=== PATIENT | male | born 1980 | race Caucasian/White ===

== ENCOUNTER 2025-07-15 17:06 | Emergency (ER) | payer OTHER, SELFPAY ==
[2025-07-15 17:16] VITALS: BP 149/99
[2025-07-15 17:50] LABS: Hematocrit 44.3 % (39.0-52.0); Hemoglobin 14.7 g/dL (13.0-18.0); Mean Corp Hgb Conc. 33.2 g/dL (33.0-37.0); Mean Corpuscular Volume 83.6 fL (80.0-94.0); Nucleated Red Blood Cells % 0 % (-); Platelet Count 348 10^3/uL (130-400); Red Cell Dist. Width 12.2 % (11.5-14.5)
[2025-07-15 18:04] LABS: ALT (SGPT) 32 U/L (0-50); AST (SGOT) 31 U/L (17-59); Albumin 4.8 g/dl (3.5-5.0); Alkaline Phosphatase 40 U/L (38-126); Blood Urea Nitrogen 14 mg/dl (9-20); Calcium 9.5 mg/dl (8.4-10.2); Carbon Dioxide 23 mmol/L (22-30); Chloride 106 mmol/L (98-107); Glucose 95 mg/dl (70-99); Potassium 4.2 mmol/L (3.5-5.1); Sodium 138 mmol/L (135-145); Total Protein 8.1 g/dl (6.3-8.2); eGFR > 60.00
[2025-07-15 22:10] VITALS: BP 132/78
[2025-07-15 22:54] LABS: C-Reactive Protein 6.10 mg/L (0.0-10.00)
--- NOTE | 2025-07-15 23:15 | ED.GENMED ---
History of Present Illness
General
Chief Complaint: Musculo-Skeletal Complaint
Source: patient
Exam Limitations: none
Time Seen by Provider: 07/15/25 21:06
Nursing documentation reviewed up to this point in time: agreed with
History of Present Illness
History of Present Illness:
45-year-old male with history as noted presents for evaluation of left elbow pain and swelling. Patient reports that he has had intermittent swelling posterior left elbow for around 2 years�he says that when it flares up he typically can apply
compressing sleeve and will improve rather quickly. He says that he was told he had bursitis in the past and did require aspiration last year. He says that today around 10 AM he started to notice some increasing pain and swelling that has
progressed throughout the day. Worse with any movement. No relieving factors. He says swelling and pain is worse than usual which prompted ER visit. No fever or any other acute issues. He does note that he was recently ill with URI. He denies
any trauma.
Past History
Past History
ED Past Medical History: GERD, HTN, Psychiatric (Anxiety, Depression) and Other (Diverticulitis, )
ED Past Surgical History: None
Social History
Tobacco: Former smoker
Alcohol: Occasional
Drug: None
Personal:
Living: with family
Employment: Employed
Family History
Family History: Negative Early CAD
Review of Systems
Review of Systems
All Other Systems: ROS reviewed and negative except as documented in HPI and ROS
Constitutional: Denies fever
Respiratory: Denies trouble breathing
Cardiac: Denies chest pain
: Denies flank pain
Musculoskeletal: Reports other (Pain and swelling left elbow); Denies neck pain or back pain
Phy Exam
Physical Exam
Physical Exam:
General: Awake, alert, oriented x3; no acute distress
Head: Normocephalic, atraumatic
Eyes: Conjunctiva normal
Throat: Airway intact, handling secretions
Neck: Trachea midline
Lungs: Breathing comfortably no distress
Heart: Tachycardia with regular rhythm
Neuro: Grossly intact
Extremities: Patient has swelling and tenderness over the olecranon bursa, no appreciable joint effusion in the left elbow; he is able to move left elbow through full active range of motion with only mild pain at extremes of flexion; there is no
erythema in the area of concern and no warmth or induration, no wounds noted, no bruising or signs of trauma, strong radial pulse on the left
Scores
Heart Failure Risk
Heart Failure Risk Score: Not Applicable
Heart Score for Chest Pain Patients
STEMI patient?: Not applicable
Withdrawal Assessment of Alcohol
Withdrawal Assessment Completed?: Not applicable
Course
Orders/Labs/Results
Orders:
Orders
07/15/25 17:31
C-Reactive Protein Urgent
Comment: ADD ON
Complete Blood Count/With Diff Urgent
Comprehensive Metabolic Panel Urgent
Erythrocyte Sed Rate Urgent
Comment: ADD ON
Blood Culture Urgent
MARIEL Source: Blood/Venous
Specimen Description:
07/15/25 22:10
Add On- LAB Urgent
Tests Added?: ESR, CRP
CR Elbow - Left Min 3 Views Urgent
Comment:
Reason For Exam: pain and swelling
07/15/25 23:09
Body Fluid Cell Count Urgent
What is the Body Fluid: joint
Date Specimen was Collected: 07/15/25
Time Specimen was Collected: 23:07
Comment: with DIFF
Body Fluid Crystals Urgent
What is the Body Fluid: joint
Date Specimen was Collected: 07/15/25
Time Specimen was Collected: 23:07
Body Fluid Glucose Urgent
Fluid Source: Other
Date Specimen was Collected: 07/15/25
Time Specimen was Collected: 23:07
Fluid Culture with Gram Stain Urgent
MARIEL Source: Joint Fluid
Specimen Description:
Date Specimen was Collected: 07/15/25
Time Specimen was Collected: 23:07
Gram Stain Stat
MARIEL Source: Joint
Specimen Description:
Date Specimen was Collected: 07/15/25
Time Specimen was Collected: 23:07
Abnormal Lab Results
07/15/25
17:31
WBC 12.5 H 10^3/uL
(4.8-10.8)
Absolute Neuts (auto) 8.6 H 10^3/uL
(1.4-6.5)
Absolute Monos (auto) 1.0 H 10^3/uL
(0.1-0.6)
Lymphocytes % 19.8 L %
(20.5-51.1)
07/15/25 17:31
07/15/25 17:31
Vital Signs
Initial and Last Documented VS:
Initial Vital Signs
Temp Pulse Resp BP Pulse Ox
37.7 C 108 20 149/99 96
07/15/25 17:16 07/15/25 17:16 07/15/25 17:16 07/15/25 17:16 07/15/25 17:16
Last Documented Vital Signs
Temp Pulse Resp BP Pulse Ox
37.4 C 108 20 132/78 95
07/15/25 22:10 07/15/25 17:16 07/15/25 17:16 07/15/25 22:10 07/15/25 23:16
Procedures
Incision/Drainage/Joint Aspiration
Left Elbow:
Anethesia: 1% Lidocaine with Epi
Preparation: cleaned with Betadine
Type of procedure: aspiration
Nature of site: other (bursa)
How much fluid was obtained?: number in mls (15cc)
Fluid description: cloudy and blood tinged
Treatment: bandaid applied
Additional information:
left olecranon bursa aspirated under sterile technique
MDM/Problems Addressed
Differential Diagnosis Includes:
Septic bursitis, traumatic/mechanical bursitis, gout
MDM/Problems Addressed:
45-year-old male presents with swelling and pain in the left elbow as described above. Vitals and exam as above. Notably no fever although he does have some mild tachycardia that improved by my assessment. Labs were sent in triage including a
CBC which shows a marginal leukocytosis but no left shift. Chemistry unremarkable. Will check x-ray of the elbow. Plan likely for aspiration of bursa. Overall concern for septic bursitis.
X-ray of the elbow shows no joint effusion or other acute abnormalities. Decision made to proceed with aspiration of olecranon bursa as documented in procedure note. Will follow-up on fluid studies.
WBC 3500 on fluid analysis at least mildly concerning for septic bursitis especially in the setting of leukocytosis. No significant erythema or overlying skin changes in the area. No fever noted, nontoxic appearing. I think he can reasonably be
treated with oral antibiotics to start. Patient comfortable with this plan. Spoke about follow-up plan with orthopedist and strict return precautions. All questions answered.
*Radiology
Radiology exam reviewed: radiology read reviewed
*Pulse Oximetry
SaO2: 95
Oxygen Mode of Delivery: Room air
Patient hypoxic: no (95%)
*Critical Care Note
Total Time (30-74mins, 75-104mins- exclusive of procedures): Not Applicable
Data Reviewed
Source: patient
Patient Management
Escalation/DeEscalation of care consider admission/obs:
Considered need for admission
ED Attending Note
-
Portions of this chart may have been created with voice recognition software.� Occasional wrong word or��sound alike� substitutions may have occurred due to the inherent limitations of voice recognition software.
Discharge Plan
Departure
Patient Disposition: Home (Routine Discharge)
Date of Disposition: 07/16/25
Time of Disposition: 00:07
Patient with high blood pressure during this ER visit?: Yes
Discharge Problem:
Septic bursitis
Instructions: Bursitis - ED (DC)
Prescriptions:
New
clindamycin HCl [Cleocin HCl] 150 mg capsule
450 mg PO TID 10 Days Qty: 90 0RF
No Action
famotidine 40 MG tablet
40 mg PO BID
lisinopril 10 MG tablet
10 mg PO DAILY
Referrals:
[facility] [Other]
Phu Watson MD [Active, Orthopedics] - Call in 1-3 days for appt
Activity Restrictions/Additional Instructions:
Thank you for visiting the Emergency Department at [facility].
1. Please schedule a follow up appointment as directed. Call first thing tomorrow morning to make an appointment.
2. If indicated, please take your medications as instructed and indicated on discharge paperwork.
3. If any of your symptoms do not improve, or persist, or become more severe within 6-12 hours, please return to the emergency department for further care.
4. Please return to the emergency department if you develop a headache, neck pain/stiffness, fever greater than 100.4F, chest pain, shortness of breath, persistent nausea, vomiting, slurred speech, difficulty walking, numbness/tingling, weakness,
signs of infection or any other symptoms that are worrisome to you.
Please call [phone] if you have any questions.
Interventions
Interventions:
*Risk Screen - Suicide Last Done: 07/15/25 17:16
*General Assessment Last Done: 07/15/25 22:16
*Neglect/Abuse Screening Last Done: 07/15/25 17:16
*ED- Fall Risk Assessment Last Done: 07/15/25 22:16
*ED COVID-19 Vaccine History Last Done: 07/15/25 22:16
ED-Musculoskeletal Assessment Last Done: 07/15/25 22:11
Discharge Date and Time
Print Language: KENYAN
[2025-07-15 23:50] LABS: Body Fluid Second Tech KB
[2025-07-16 00:09] VITALS: BP 119/81
[2025-07-16] MEDS: CLEOCIN 450 MG PO (00:20)
== END 2025-07-16 00:27 | disposition home or self-care (01) ==
LOC: EMR 17:06
PROVIDERS: Emergency Medicine; EMERGENCY PHYSICIAN Emergency Medicine
DX: M71.122 Other infective bursitis, left elbow (principal); R22.32 Localized swelling, mass and lump, left upper limb; K21.9 Gastro-esophageal reflux disease without esophagitis; I10 Essential (primary) hypertension; F41.8 Other specified anxiety disorders; Z87.891 Personal history of nicotine dependence
CPT/HCPCS: 99284; 20605; 73080; 80053; 82945; 85025; 85652; 86140; 87015; 87040; 87070; 87205; 89051; 89060